=== PATIENT | male | born 1955 ===

== ENCOUNTER → 2019-02-02 | Outpatient (CLI) | payer OTHER | END | disposition home or self-care (01) | LOC: LAB 07:52 → LAB SHORT 07:52 | DX: B88.0 Other acariasis (principal); L85.8 Other specified epidermal thickening | CPT/HCPCS: 88305 ==

== ENCOUNTER → 2021-05-15 | Outpatient (CLI) | payer OTHER | END | disposition home or self-care (01) | LOC: LAB 12:05 → LAB SHORT 12:05 | DX: L57.0 Actinic keratosis (principal) | CPT/HCPCS: 88305 ==